=== PATIENT | male | born 1945 | race Caucasian/White ===

== ENCOUNTER 2017-08-21 05:55 | Day surgery (SDC) | payer OTHER, BC ==
[2017-08-15 18:43] VITALS: BMI 32.8
[2017-08-21] MEDS ORDERED: TETRACAINE 0.5% OPHTH SOLN 2 ML BOTTLE ONE (07:15)
[2017-08-21] MEDS ORDERED: BACITRACIN 3.5 GM OPTHALMIC OINT TUBE ONE (07:15)
[2017-08-21] MEDS ORDERED: LIDOCAINE 1%/EPI 1:100000 (20 ML MULTI DOSE VIAL) ONE (07:16)
[2017-08-21] MEDS ORDERED: POVIDONE-IODINE 5% OPHTHALMIC PREP 30 ML SOLUTION ONE (07:16)
[2017-08-21] MEDS ORDERED: BUPIVACAINE HCL/PF 0.5% (5MG/ML) 10 ML VIAL ONE (07:16)
[2017-08-21] MEDS ORDERED: MIDAZOLAM HCL 2 MG/2 ML SINGLE DOSE VIAL ONE (07:29)
[2017-08-21] MEDS ORDERED: PROPOFOL 20 ML ONE ×2 (07:53)
[2017-08-21] MEDS ORDERED: SUCCINYLCHOLINE CHLORIDE 200 MG/10 ML VIAL ONE (07:53)
[2017-08-21] MEDS ORDERED: DEXAMETHASONE SOD PHOSPHATE 4 MG/1 ML VIAL ONE (08:01)
[2017-08-21] MEDS ORDERED: LIDOCAINE HCL/PF 2% SDV 5ML VIAL ONE (08:01)
[2017-08-21] MEDS ORDERED: ONDANSETRON 4 MG/2 ML VIAL ONE (08:01)
[2017-08-21] MEDS ORDERED: ceFAZolin SODIUM 1 GM VIAL ONE (08:03)
[2017-08-21] MEDS ORDERED: oxyCODONE HCL 5 MG TABLET PO PRN (09:22)
[2017-08-21] MEDS ORDERED: ONDANSETRON 4 MG/2 ML VIAL IVPUSH PRN (09:22)
[2017-08-21] MEDS ORDERED: LACTATED RINGERS SOLUTION 1,000 ML IV SCH (09:30)
--- NOTE | 2017-08-21 10:34 | OP ---
DATE OF OPERATION: 08/21/2017 PREOPERATIVE DIAGNOSIS: Extensive defect, left cheek and left lower lid, crossing the lid-cheek junction. POSTOPERATIVE DIAGNOSIS: Extensive defect, left cheek and left lower lid, crossing the lid-cheek junction. PROCEDURE: 1. Debridement and tailoring of left lower lid and left cheek defect. 2. Full-thickness skin graft from left postauricular region to left lower lid and cheek. SURGEON: Matt Li MD ANESTHESIA: LMA and general. COMPLICATONS: None. ESTIMATED BLOOD LOSS: 5 mL. OPERATION REPORT: Patient was brought to the operating room, placed on the operating room table. Vital signs monitored by Anesthesia. Tetracaine was placed in both eyes. The patient was placed under LMA anesthesia. A potential myocutaneous flap was marked out in the left cheek, and after a time-out was performed, a 50/50 mixture of 2% Xylocaine with 1:100,000 epinephrine and 0.5% Marcaine was injected throughout the cheek and the left lower lid as well as the pretragal and helical regions of the left ear. Patient was then prepped and draped in the usual sterile fashion exposing both eyes. The right eye was closed, and the ear was exposed. The ear was sutured to the pretragal region with two 4-0 silk sutures. The wound was identified, examined, and when the lid was placed on stretch, there was a significant portion of the eyelid skin which was missing in the central portion of the lower lid, then, across the lid-cheek junction to this thick sebaceous skin, which was in thi patients cheek. It was felt that a myocutaneous flap would bring significant bulk into the eyelid in order to cover the lid appropriately. Therefore, skin graft was elected. A double-arm 4-0 silk was passed, inserted a No. 8 Korean bolster into the skin realigned with the lid laterally elevating the lid, and the cheek was pulled down, and the template was then placed over this area and cut to the shape of the defect, marked so that the superior edge of the template would be the same as the face and the eyelid skin would be the same facing the postauricular skin. It was then placed on the postauricular reflection and appropriately oriented. Area for the graft was marked . It was injected with 2% Xylocaine with 1:100,000 epinephrine for about 2-3 mL, harvested by incising the parameter with a 15 blade and then a Yunior scissors. Hemostasis was achieved with bipolar cautery and then, the ear was closed with a combination of running locking 3-0 chromic and interrupted 3-0 chromic sutures. The helix sutures were removed. The graft was then thinned of all subcutaneous tissue and pie-crusted with a No. 11 blade. The wound was debrided and tailored to be smooth and round in configuration, and the graft was then sutured into the defect straddling the left lower lid and cheek with interrupted and running 6-0 plain and 5-0 plain sutures. The thin postauricular skin was oriented to a thin eyelid skin, and the graft conformed nicely to the different thicknesses of skin into the contour change in the eyelid and cheek. Once it was completely sutured in, a strip of Telfa and some Bacitracin ointment was placed on the graft and then dental roll was placed along with Telfa and was tied over with two 4-0 silk sutures, and a 2nd piece of Telfa was placed over the dental roll and the closed eyelid. The 4-0 suture was secured to the forehead with Mastisol and Steri-Strips after ointment was placed in the eye. Telfa, double eye pads and fluff were then placed over the eye and this was taped over the eye with a paper tape. Xeroform and gauze were placed in the eye and the ear, and the patient was awoken from anesthesia and taken to the recovery room in stable condition. MATT LI M.D. [id number]
[2017-08-21 11:00] VITALS: BP 132/76; PULSE 71; TEMP 97.8
== END 2017-08-21 10:55 | disposition home or self-care (01) ==
LOC: FASU 05:55
PROVIDERS: ATTEND Ophthalmology
PROC: 0HB3XZZ Excision of Left Ear Skin, External Approach (ICD-10-PCS; 2017-08-21)
PROC: 08RRX7Z Replacement of Left Lower Eyelid with Autologous Tissue Substitute, External Approach (ICD-10-PCS; principal; 2017-08-21 08:20)
DX: C44.119 Basal cell carcinoma of skin of left eyelid, including canthus (principal); H02.89 Other specified disorders of eyelid; M95.2 Other acquired deformity of head
CPT/HCPCS: 94760

== ENCOUNTER 2018-01-23 10:09 | Day surgery (SDC) | payer OTHER, BC ==
[2018-01-22 12:54] VITALS: BMI 32.9
[~2018-01-23 10:09] MED LIST: ACETAMINOPHEN 325 MG TABLET (FP) PO PRN; BSS (NA/CA/MG/K) BALANCED SALT SOLUTION OPHTH SOLN 15 ML BOTTLE OS ONE; BUPIVACAINE HCL/PF 0.75% 10 ML VIAL NR ONE; CHONDROITIN SU A/HYALUR SOD 1 KIT IO ONE; EPINEPHrine/PF 1 MG/1 ML (1:1,000) AMPULE SQ ONE; LIDOCAINE HCL 1% PRESERVATIVE FREE - 30ML VIAL IO ONE; LIDOCAINE HCL/PF 2% SDV 5ML VIAL INF ONE; POVIDONE-IODINE 5% OPHTHALMIC PREP 30 ML SOLUTION OS ONE
[2018-01-23] MEDS ORDERED: PHENYLEPHRINE 2.5% OPHTH SOLN 15 ML BOTTLE ONE (10:20)
[2018-01-23] MEDS ORDERED: CYCLOPENTOLATE HCL 1% OPHTH SOLN 2 ML BOTTLE ONE (10:20)
[2018-01-23] MEDS ORDERED: OFLOXACIN 0.3% OPHTHALMIC SOLUTION 5 ML BOTTLE ONE (10:20)
[2018-01-23] MEDS ORDERED: KETOROLAC TROMETHAMINE 0.5% EYE DROP 1 DROP DROPS ONE (10:20)
[2018-01-23] MEDS ORDERED: TROPICAMIDE 1% OPHTH SOLN 15 ML BOTTLE ONE (10:20)
[2018-01-23] MEDS: OFLOXACIN 0.3% OPHTHALMIC SOLUTION 5 ML BOTTLE OP SCH ×3 (10:35→11:39)
[2018-01-23] MEDS: TROPICAMIDE 1% OPHTH SOLN 15 ML BOTTLE OP SCH ×3 (10:35→11:39)
[2018-01-23] MEDS: PHENYLEPHRINE 2.5% OPHTH SOLN 15 ML BOTTLE OP SCH ×3 (10:35→11:39)
[2018-01-23] MEDS: KETOROLAC TROMETHAMINE 0.5% EYE DROP 1 DROP DROPS OP SCH ×3 (10:35→11:39)
[2018-01-23] MEDS: CYCLOPENTOLATE HCL 1% OPHTH SOLN 2 ML BOTTLE OP SCH ×3 (10:35→11:39)
[2018-01-23 10:36] VITALS: TEMP 98.2
[2018-01-23] MEDS ORDERED: MIDAZOLAM HCL 2 MG/2 ML SINGLE DOSE VIAL ONE (12:09)
[2018-01-23] MEDS ORDERED: MANNITOL 25% 12.5 GM/50 ML VIAL IVPB ONE (12:13)
[2018-01-23] MEDS ORDERED: PROPOFOL 20 ML ONE (12:19)
[2018-01-23] MEDS ORDERED: LIDOCAINE HCL/PF 2% SDV 5ML VIAL INF ONE (12:22)
[2018-01-23] MEDS ORDERED: BUPIVACAINE HCL/PF 0.75% 10 ML VIAL NR ONE (12:22)
[2018-01-23] MEDS ORDERED: POVIDONE-IODINE 5% OPHTHALMIC PREP 30 ML SOLUTION OS ONE (12:25)
[2018-01-23] MEDS ORDERED: CHONDROITIN SU A/HYALUR SOD 1 KIT IO ONE (12:31)
[2018-01-23] MEDS ORDERED: BSS (NA/CA/MG/K) BALANCED SALT SOLUTION OPHTH SOLN 15 ML BOTTLE OS ONE (12:31)
[2018-01-23] MEDS ORDERED: LIDOCAINE HCL 1% PRESERVATIVE FREE - 30ML VIAL IO ONE (12:31)
[2018-01-23] MEDS ORDERED: EPINEPHrine/PF 1 MG/1 ML (1:1,000) AMPULE SQ ONE (12:37)
[2018-01-23 14:22] VITALS: BP 134/76; PULSE 73
--- NOTE | 2018-01-23 23:31 | OP ---
DATE OF OPERATION: DATE OF DICTATION: 01/23/2018 OPERATION: Phacoemulsification with posterior chamber intraocular lens implantation, left eye, lens used [id number], 22.5 Diopter power, Serial No. [id number]. PREOPERATIVE DIAGNOSIS: Cataract left eye. POSTOPERATIVE DIAGNOSIS: Cataract left eye. SURGEON: Abel Morris M.D. ANESTHESIA: Peribulbar/Modified Van Lint/MAC. COMPLICATIONS: None. PROCEDURE: The patient was brought to the operating room and correctly identified along with the operative site and a correct intraocular lens romero. The patient was then given a peribulbar block under sedation with 5 mL of a 1:1 mixture of 2% Lidocaine and 0.5% Bupivacaine. Two to 3 mL of the same mixture was given as a modified Van Lint block. The eye was then prepped and draped in the usual sterile fashion including 5% Betadine solution in the conjunctival sac and an eyelid drape. An eyelid speculum was then placed into the eye. A paracentesis port was created. Viscoelastic was injected to inflate the anterior chamber. A temporal clear corneal wound was created. A continuous circular capsulorrhexis was performed. The nucleus was then hydro-dissected and removed phacoemulsification via the [id number]-[id number] approach. The remaining cortical material was irrigated and aspirated from the eye. Viscoelastic was injected to inflate the capsular bag. The lens was injected into the capsular bag. Viscoelastic was then irrigated and aspirated from the eye. The intraocular lens was noted to be well centered and covered by the anterior capsular border. All wounds were found to be watertight. Topical Vancomycin was given. The eye patch and shield were placed. The patient was discharged from the operating room in stable condition. Selene RANDOLPH/[id number]
== END 2018-01-23 14:00 | disposition home or self-care (01) ==
LOC: JASU-SURG 10:09
PROVIDERS: ATTEND Ophthalmology
PROC: 08RK3JZ Replacement of Left Lens with Synthetic Substitute, Percutaneous Approach (ICD-10-PCS; principal; 2018-01-23 12:00)
DX: H26.9 Unspecified cataract (principal)

== ENCOUNTER 2022-06-21 15:49 | Inpatient (IN) | payer OTHER, BC ==
[2022-06-21] MEDS ORDERED: ACETAMINOPHEN 1000 MG/100 ML BAG IVPB ONE (16:23)
[2022-06-21 17:16] LABS: BASO % 0.8 % (0-2.0); EOS % 0.6 % (0-4.5); HEMATOCRIT 37.7 % (35.4-49); HEMOGLOBIN 13.1 GM/dL (11.7-16.9); LYMPH % 13.6 % (8-40); MCH 30.4 pg (25.7-33.7); MCHC 34.7 g/dl (32.0-35.9); MEAN CELL VOLUME 87.4 fl (80-96); MEAN PLT VOLUME 8.6 fl (7.5-11.1); PLATELET COUNT 349 10^3/uL (134-434); RBC 4.31 M/mm3 (4.00-5.60); WHITE BLOOD COUNT 12.2 K/mm3 (4.0-10.0)
[2022-06-21 17:22] LABS: INR 1.24 (0.83-1.09); PROTHROMBIN TIME (PATIENT) 14.4 SEC (9.7-13.0)
[2022-06-21 17:24] LABS: ACTIVATED PTT 33.4 SECONDS (25.2-36.5)
[2022-06-21 17:47] LABS: CALCIUM 9.4 mg/dL (8.5-10.1)
[2022-06-21 17:48] LABS: ALBUMIN 3.6 g/dl (3.4-5.0); BLOOD UREA NITROGEN 15.7 mg/dL (7-18); MAGNESIUM 2.3 mg/dL (1.8-2.4)
[2022-06-21 17:51] LABS: CREATININE 0.8 mg/dL (0.55-1.3)
[2022-06-21 17:52] LABS: BILIRUBIN,TOTAL 1.2 mg/dL (0.2-1); TOT PROT 7.7 g/dl (6.4-8.2)
[2022-06-21] MEDS ORDERED: SODIUM CHLORIDE 0.9% 500 ML INFUS.BAG IV ONE (18:22)
[2022-06-21] MEDS ORDERED: PIPERACILLIN/TAZOB 4.5 GM 4.5 GM in DEXTROSE 5%-WATER 100 ML IVPB ONE (18:50)
[2022-06-21] MEDS ORDERED: PIPERACILLIN/TAZOB 4.5 GM 4.5 GM/100 ML BAG IVPB ONE (19:08)
[2022-06-21] MEDS ORDERED: DOCUSATE SODIUM 100 MG CAPSULE (FP) PO PRN (20:45)
[2022-06-21 21:13] LABS: URINE APPEARANCE CLEAR; URINE BILIRUBIN NEGATIVE (NEGATIVE); URINE COLOR YELLOW; URINE GLUCOSE (UA) NEGATIVE (NEGATIVE); URINE KETONE NEGATIVE (NEGATIVE); URINE LEUK ESTERASE NEGATIVE (NEGATIVE); URINE NITRITE NEGATIVE (NEGATIVE); URINE PROTEIN NEGATIVE (NEGATIVE)
[2022-06-21] MEDS ORDERED: TAMSULOSIN HCL 0.4 MG CAP PO ONE (22:33)
[2022-06-21] MEDS ORDERED: TAMSULOSIN HCL 0.4 MG CAP ONE (22:35)
[2022-06-22] MEDS ORDERED: MELATONIN 5 MG TABLETS PO PRN (01:03)
[2022-06-22] MEDS ORDERED: PIPERACILLIN/TAZOB 3.375 GM 3.375 GM/50 ML BAG IVPB ONE (02:25)
[2022-06-22] MEDS: PIPERACILLIN/TAZOB 3.375 GM 3.375 GM in DEXTROSE 5%-WATER - 50 ML IVPB SCH ×4 (02:32→19:35)
[2022-06-22] MEDS ORDERED: ACETAMINOPHEN INJECTION 100 ML IVPB ONE (02:47)
[2022-06-22] MEDS: ACETAMINOPHEN 1000 MG/100 ML BAG IVPB PRN ×2 (02:51→12:51)
[2022-06-22] MEDS ORDERED: LEVOTHYROXINE NA 150 MCG TABLET PO SCH (07:00)
[2022-06-22] MEDS: LEVOTHYROXINE 125 MCG, LEVOTHYROXINE 50 MCG PO SCH (09:24)
[2022-06-22 10:35] LABS: BASO % 1.3 % (0-2.0); EOS % 1.4 % (0-4.5); HEMATOCRIT 35.9 % (35.4-49); HEMOGLOBIN 12.9 GM/dL (11.7-16.9); LYMPH % 15.8 % (8-40); MCHC 35.9 g/dl (32.0-35.9); MEAN CELL VOLUME 86.2 fl (80-96); MEAN PLT VOLUME 9.4 fl (7.5-11.1); MONO % 6.9 % (3.8-10.2); NEUT % 74.6 % (42.8-82.8); PLATELET COUNT 286 10^3/uL (134-434); RBC 4.16 M/mm3 (4.00-5.60); RDW 13.1 % (11.9-15.9); WHITE BLOOD COUNT 9.6 K/mm3 (4.0-10.0)
[2022-06-22 11:02] LABS: BLOOD UREA NITROGEN 10.9 mg/dL (7-18); CALCIUM 8.8 mg/dL (8.5-10.1)
[2022-06-22 11:07] LABS: CREATININE 0.8 mg/dL (0.55-1.3)
[2022-06-22 12:38] VITALS: BMI 33.7
[2022-06-22] MEDS: FUROSEMIDE 20 MG TABLET (FP) PO SCH (12:52)
[2022-06-22] MEDS: FINASTERIDE 5 MG TABLET (FP) PO SCH (12:53)
[2022-06-22] MEDS: HEPARIN NA (PORCINE) 5,000 UNITS/ML 1ML VIAL SQ SCH ×2 (13:44→22:37)
[2022-06-23] MEDS ORDERED: ACETAMINOPHEN 325 MG TABLET (FP) PO PRN (00:01)
[2022-06-23] MEDS: PIPERACILLIN/TAZOB 3.375 GM 3.375 GM in DEXTROSE 5%-WATER - 50 ML IVPB SCH ×2 (01:46→14:07)
[2022-06-23] MEDS: HEPARIN NA (PORCINE) 5,000 UNITS/ML 1ML VIAL SQ SCH ×2 (06:38→14:06)
[2022-06-23] MEDS: LEVOTHYROXINE 125 MCG, LEVOTHYROXINE 50 MCG PO SCH (06:38)
[2022-06-23] MEDS ORDERED: REGADENOSON 0.4 MG/5 ML PRE-FILLED SYRINGE IVPUSH ONE ×2 (10:15→10:58)
[2022-06-23] MEDS: FINASTERIDE 5 MG TABLET (FP) PO SCH (14:07)
[2022-06-23] MEDS: FUROSEMIDE 20 MG TABLET (FP) PO SCH (14:07)
[2022-06-23 15:19] VITALS: BP 139/75; PULSE 89; RESP 18; TEMP 98.2
== END 2022-06-23 16:02 | disposition home or self-care (01) | DRG 728 ==
LOC: JER 15:49 → JERBED 20:45 → J8W 06-22 08:07
PROVIDERS: ADMIT Internal Medicine; ATTEND Family Medicine
DX: N45.3 Epididymo-orchitis (principal); I42.9 Cardiomyopathy, unspecified; K40.90 Unilateral inguinal hernia, without obstruction or gangrene, not specified as recurrent; I10 Essential (primary) hypertension; J44.9 Chronic obstructive pulmonary disease, unspecified; I25.10 Atherosclerotic heart disease of native coronary artery without angina pectoris; E78.5 Hyperlipidemia, unspecified; N43.3 Hydrocele, unspecified; N50.812 Left testicular pain; E66.9 Obesity, unspecified; Z68.33 Body mass index [BMI] 33.0-33.9, adult; N32.0 Bladder-neck obstruction
CPT/HCPCS: 0241U-QW; 36415; 74177-TC; 76870-TC; 78452-TC; 80048; 80053; 81003; 83605; 83735; 84443; 85025; 85610; 85730; 86850; 86900; 86901; 87040; 87086; 93005; 93010; 93017; 99285-25; A9502; J1644; J2785; Q9967